=== PATIENT | male | born 1975 ===

== ENCOUNTER 2019-03-31 08:02 | Day surgery (SDC) | payer OTHER | END 2019-03-31 13:45 | disposition home or self-care (01) | LOC: AMB-ENDOS 08:02 | DX: K57.30 Diverticulosis of large intestine without perforation or abscess without bleeding (principal); Z93.3 Colostomy status ==

== ENCOUNTER 2019-05-18 09:15 | Inpatient (IN) | payer OTHER ==
[~2019-05-18] VITALS: Ht 165.1 cm; Wt 86.2 kg
[2019-05-18] MEDS ORDERED: ZESTRIL10 M1 PO (11:00)
[2019-05-24] MEDS ORDERED: PERCOCET 5-3251 EACH PO (10:58)
[2019-05-24] MEDS ORDERED: INTESTINEX680 M1 PO (10:58)
== END 2019-05-24 14:03 | disposition home or self-care (01) | DRG 330 ==
LOC: O/R 09:15 → SURH 05-21 09:15 → O/R 05-21 11:00 → SURG 05-21 19:01 → SURH 05-21 20:00 → SURG 05-24 14:03
PROVIDERS: ADMIT Surgery
PROC: 0DQN4ZZ Repair Sigmoid Colon, Percutaneous Endoscopic Approach (ICD-10-PCS; principal; 2019-05-21 20:00)
DX: Z43.3 Encounter for attention to colostomy (principal); K57.20 Diverticulitis of large intestine with perforation and abscess without bleeding; I10 Essential (primary) hypertension